=== PATIENT | male | born 1960 | race African-American/Black ===

== ENCOUNTER 2024-09-13 19:39 | Emergency (ER) | payer MEDICAID ==
[~2024-09-13] VITALS: Ht 166.4 cm; Wt 60.5 kg
[2024-09-13 19:42] VITALS: TEMP 37.1; O2SAT 98
[2024-09-13] MEDS: ACETAMINOPHEN WITH CODEINE 300/30MG TABLET PO ONE (22:59)
[2024-09-13] MEDS ORDERED: IBUP-2029 MT (23:40)
[2024-09-14 00:28] VITALS: BP 120/81; PULSE 71; RESP 18; O2SAT 99
== END 2024-09-14 00:35 | disposition home or self-care (01) ==
LOC: ER 19:39
DX: S90.01XA Contusion of right ankle, initial encounter (principal); I71.40 Abdominal aortic aneurysm, without rupture, unspecified; X58.XXXA Exposure to other specified factors, initial encounter; Y93.89 Activity, other specified; Y92.89 Other specified places as the place of occurrence of the external cause; Y99.8 Other external cause status
CPT/HCPCS: 29515; 73630; 73700; 99284